=== PATIENT | male | born 2000 | race Caucasian/White ===

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

== ENCOUNTER 2022-05-05 19:44 | Emergency (ER) | payer OTHER, MEDICAID, SELFPAY ==
[2022-05-05 19:45] VITALS: BP 130/95; PULSE 70; RESP 16; TEMP 36.2; O2SAT 100; BMI 26.4
--- NOTE | 2022-05-05 20:08 | ED.VIS.LOWEX ---
HPI History of Present Illness Chief Complaint: Lower Extremity Injury Informant: patient and parent Narrative Narrative: 21-year-old male was playing basketball today when he went up for a lay up and came down awkwardly. He felt his knee twist. He notes swelling medially and when he walks he gets pain in this region as well. He denies any other injuries. He has a has been able to bear weight but painfully PFSH PFSH Home Medications NK 03/16/20 [History Last Taken Unknown] Allergy/AdvReac Type Severity Reaction Status Date / Time No Known Allergies Allergy Verified 05/05/22 19:46 Social History (Updated 05/05/22 @ 20:[address] Gaudencio Bennett, DO) Smoking Status: Never smoker substance use type: does not use ROS ROS ED Constitutional Constitutional ED: Denies chills or weight loss Eyes Eyes: Denies change in vision or diplopia ENT ENT ED: Denies ear pain, rhinorrhea or sore throat Cardiovascular Cardiovascular: Denies chest pain, orthopnea, palpitations or racing heartbeat Respiratory/Chest Respiratory/Chest: Denies cough, dyspnea or orthopnea Gastrointestinal Gastrointestinal: Denies abdominal pain, diarrhea, nausea or vomiting Genitourinary Genitourinary ED: Denies dysuria, hematuria or urinary frequency Musculoskeletal Musculoskeletal: Reports other Details: See history of present illness ; Denies arthralgias or myalgias Integumentary Denies abscess or rash Neurologic Neurologic: Denies headache(s) or weakness Psychiatric Psychiatric: Denies anxiety, depression, suicidal ideation or suicidal thoughts Endocrine Endocrinology: Denies polydipsia, polyphagia or polyuria Allergic/Immunologic Allergic/Immunologic ED: Denies mouth swelling, tongue swelling or urticaria EXAM Physical Exam Const Vital Signs: 05/05/22 19:45 Temperature 97.2 F L Temperature Source Temporal Pulse Rate 70 Respiratory Rate 16 Blood Pressure 130/95 H Blood Pressure Mean 106 Pulse Ox 100 Oxygen Delivery Method Room Air Positive well nourished and well developed General Appearance ED: well developed HEENT Reports normocephalic, head/scalp atraumatic and moist mucous membranes Eyes PERRL and EOMs intact bilaterally Neck no lymphadenopathy, supple and no JVD Resp normal respiratory effort and clear to auscultation bilaterally Cardio regular rate, regular rhythm and no murmurs GI normal to inspection, nondistended, normoactive bowel sounds and non-tender Palpation: soft Back/Spine no CVA tenderness and normal ROM Extremity Extremity Narrative: There is swelling of the knee medially. There is laxity noted with MCL testing. General Extremety ED: Negative for edema General Extremity: Negative for edema Neuro oriented x3 and CN's II-XII intact bilaterally Sensorium / Orientation: alert Motor Exam: strength 5/5 throughout Psych mental status grossly normal Mood & Affect: Negative for depressed or tearful Skin no rashes or lesions noted and no wounds MDM MDM MDM Narrative Medical decision making narrative: My interpretation of the plain films of the left knee is no acute fracture. Patient placed in Milo wrap given crutches. I am concerned about an MCL sprain versus tear. Rest ice elevation compression follow-up with orthopedics if not improving Discharge Plan Triage Chief Complaint: Lower Extremity Injury ED Provider: Gaudencio Bennett Dx/Rx/DC Orders Clinical Impression: Knee MCL sprain, Acute knee pain Instructions: MCL Sprain Prescriptions: No Action NK Primary Care Provider: Karsten Chanel Referrals: Karsten Chanel DO [Primary Care Provider] - As Needed Rj Leal MD [Med Staff - Active Staff] - 10-14 Days if not better Disposition Disposition: Home, Self Care
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
== END 2022-05-05 20:59 | disposition home or self-care (01) ==
LOC: ED 20:57
PROVIDERS: Emergency Provider Emergency Medicine; PCP Pediatrics; Visit Provider Emergency Medicine
DX: S83.412A Sprain of medial collateral ligament of left knee, initial encounter (principal); X50.1XXA Overexertion from prolonged static or awkward postures, initial encounter; Y93.67 Activity, basketball
CPT/HCPCS: 73564; 99283